=== PATIENT | male | born 1965 ===

== ENCOUNTER → 2023-04-15 | Outpatient (CLI) | payer BC ==
[2023-04-15 10:08] LABS: Basophils # (auto) 0.1 10 ^3/uL (0-0.2); Basophils % (auto) 0.9 % (0.0-2.0); Eosinophils # (auto) 0.5 10 ^3/uL (0-0.8); Eosinophils % (auto) 7.4 % (0.0-7.0); Hematocrit 45.8 % (41.0-53.0); Hemoglobin 15.4 g/dL (13.5-17.5); Lymphocytes # (auto) 2.2 10 ^3/uL (0.4-5.4); Lymphocytes % (auto) 34.3 % (10.0-50.0); Mean Corpuscular Hemoglobin 29.4 pg (28.0-32.0); Mean Corpuscular Hgb Conc. 33.6 g/dL (32.0-36.0); Mean Corpuscular Volume 87.5 fL (80.0-100.0); Monocytes # (auto) 0.4 10 ^3/uL (0-1.3); Neutrophils # (auto) 3.2 10 ^3/uL (1.6-8.6); Neutrophils % (auto) 50.4 % (37.0-80.0); Red Blood Cells 5.23 10^6/uL (4.5-5.90); Red Cell Distribution Width 13.5 % (11.8-14.3); White Blood Cell 6.3 10^3/uL (4.4-10.8)
[2023-04-15 10:44] LABS: Urine Bacteria NONE SEEN /hpf (None Seen); Urine Blood TRACE /uL (Negative); Urine Clarity HAZY (Clear); Urine Color Yellow (Yellow); Urine Mucus FEW (None Seen); Urine Protein, UAD TRACE (Negative); Urine Specific Gravity 1.018 (1.001-1.035); Urine Urobilinogen Normal (Negative); Urine WBC 211 /hpf (0 - 3)
[2023-04-15 11:04] LABS: Alanine Aminotransferase 27 U/L (7-40); Albumin 4.3 g/dL (3.2-4.8); Alkaline Phosphatase 95 U/L (46-116); Anion Gap 6 (5-15); Aspartate Aminotransferase 25 U/L (13-40); BUN/Creatinine Ratio 14.8 (10.0-20.0); Bilirubin, Total 0.4 mg/dL (0.2-1.0); Blood Urea Nitrogen 12 mg/dL (9-23); Calcium 9.5 mg/dL (8.5-10.1); Carbon Dioxide 27 mmol/L (20-30); Chloride 104 mmol/L (98-107); Cholesterol 267 mg/dL (< 200); Glucose 94 mg/dL (74-106); HDL Cholesterol 48 mg/dL (40-59); LDL Cholesterol 151 mg/dL (< 100); Potassium 4.3 mmol/L (3.5-5.1); Sodium 137 mmol/L (136-145); Total Protein 7.6 g/dL (5.7-8.2); Triglycerides 345 mg/dL (< 150)
== END | disposition home or self-care (01) ==
LOC: LAB 09:40
DX: Z00.01 Encounter for general adult medical examination with abnormal findings (principal); Z12.11 Encounter for screening for malignant neoplasm of colon; Z12.5 Encounter for screening for malignant neoplasm of prostate; E78.5 Hyperlipidemia, unspecified; N35.811 Other urethral stricture, male, meatal
CPT/HCPCS: 36415; 80053; 80061; 81001; 83036; 84153; 84443; 85025; 87086

== ENCOUNTER → 2023-06-24 | Outpatient (CLI) | payer BC | END | disposition home or self-care (01) | LOC: LAB 10:33 | DX: N39.0 Urinary tract infection, site not specified (principal) | CPT/HCPCS: 87086; 87088; 87186 ==

== ENCOUNTER → 2023-08-05 | Outpatient (CLI) | payer BC | END | disposition home or self-care (01) | LOC: LAB 09:14 | DX: N39.0 Urinary tract infection, site not specified (principal); R97.20 Elevated prostate specific antigen [PSA] | CPT/HCPCS: 84153; 87086 ==

== ENCOUNTER → 2024-05-26 | Outpatient (CLI) | payer BC ==
[2024-05-26 11:07] LABS: Urine Bacteria None Seen /hpf (None Seen)
[2024-05-26 11:12] LABS: Basophils # (auto) 0.1 10 ^3/uL (0-0.2); Basophils % (auto) 0.9 % (0.0-2.0); Eosinophils # (auto) 0.2 10 ^3/uL (0-0.8); Eosinophils % (auto) 2.3 % (0.0-7.0); Hematocrit 43.8 % (41.0-53.0); Hemoglobin 14.9 g/dL (13.5-17.5); Lymphocytes # (auto) 2.6 10 ^3/uL (0.4-5.4); Lymphocytes % (auto) 35.1 % (10.0-50.0); Mean Corpuscular Hemoglobin 30.5 pg (28.0-32.0); Mean Corpuscular Volume 89.7 fL (80.0-100.0); Monocytes # (auto) 0.5 10 ^3/uL (0-1.3); Monocytes % (auto) 7.5 % (0.0-12.0); Neutrophils % (auto) 54.2 % (37.0-80.0); Nucleated Red Blood Cells % 0.1 %; Platelet Count (auto) 307 10^3/uL (140-450); Red Blood Cells 4.89 10^6/uL (4.5-5.90); Red Cell Distribution Width 13.5 % (11.8-14.3); White Blood Cell 7.4 10^3/uL (4.4-10.8)
[2024-05-26 11:30] LABS: Alanine Aminotransferase 48 U/L (7-40); Albumin 4.7 g/dL (3.2-4.8); Alkaline Phosphatase 99 U/L (46-116); Anion Gap 6 (5-15); Aspartate Aminotransferase 27 U/L (13-40); BUN/Creatinine Ratio 19.3 (10.0-20.0); Bilirubin, Total 0.4 mg/dL (0.2-1.0); Blood Urea Nitrogen 16 mg/dL (9-23); Calcium 9.7 mg/dL (8.7-10.4); Carbon Dioxide 28 mmol/L (20-31); Chloride 104 mmol/L (98-107); Cholesterol 219 mg/dL (< 200); Glucose 98 mg/dL (74-106); HDL Cholesterol 42 mg/dL (40-59); LDL Cholesterol 129 mg/dL (< 100); Potassium 4.3 mmol/L (3.5-5.1); Sodium 138 mmol/L (136-145); Total Protein 7.6 g/dL (5.7-8.2); Triglycerides 317 mg/dL (< 150)
[2024-05-26 11:36] LABS: Urine Blood Negative /uL (Negative); Urine Clarity Turbid (Clear); Urine Color Light-Yellow (Yellow); Urine Mucus FEW (None Seen); Urine Protein, UAD TRACE (Negative); Urine Specific Gravity 1.022 (1.001-1.035); Urine Squamous Epithelial Cell FEW /hpf (<5); Urine Urobilinogen Normal (Negative); Urine WBC 23 /HPF (0-3); Urine pH 5.5 (5.0-9.0)
== END | disposition home or self-care (01) ==
LOC: LAB 10:52
PROVIDERS: ATTEND Nurse Practitioner Family
DX: E55.9 Vitamin D deficiency, unspecified (principal); A49.2 Hemophilus influenzae infection, unspecified site; E78.5 Hyperlipidemia, unspecified; Z12.5 Encounter for screening for malignant neoplasm of prostate
CPT/HCPCS: 36415; 80053; 80061; 81001; 82306; 83036; 84153; 84443; 85025; 87086